=== PATIENT | male | born 1970 | race Caucasian/White ===

== ENCOUNTER 2021-10-21 11:29 | Emergency (ER) | payer OTHER | END 2021-10-21 13:49 | disposition home or self-care (01) | LOC: JP.ED 11:29 | DX: S06.0X0A Concussion without loss of consciousness, initial encounter (principal); I10 Essential (primary) hypertension; E11.9 Type 2 diabetes mellitus without complications; M10.9 Gout, unspecified; Z79.84 Long term (current) use of oral hypoglycemic drugs; Z79.899 Other long term (current) drug therapy; W00.0XXA Fall on same level due to ice and snow, initial encounter | CPT/HCPCS: 70450; 99283; 99284-25 ==

== ENCOUNTER 2024-07-06 06:15 | Day surgery (SDC) | payer OTHER ==
[2024-07-06] MEDS ORDERED: Midazolam 1 MG/ML 2 ML SDV ONE (07:03)
[2024-07-06] MEDS ORDERED: Propofol 200 MG/20 ML SDV ONE (07:03)
[2024-07-06] MEDS ORDERED: fentaNYL 50 MCG/ML SDV ONE (07:03)
[2024-07-06] MEDS: Lactated Ringers 1,000 ML IV SCH (07:08)
== END 2024-07-06 09:15 | disposition home or self-care (01) ==
LOC: JP.SDS 06:15
PROVIDERS: ATTEND Surgery
DX: Z12.11 Encounter for screening for malignant neoplasm of colon (principal); I10 Essential (primary) hypertension; E78.5 Hyperlipidemia, unspecified; E11.9 Type 2 diabetes mellitus without complications
CPT/HCPCS: 00812; G0121; J2250; J2704; J3010; J7120